=== PATIENT | female | born 1950 | race Caucasian/White ===

== ENCOUNTER → 2016-10-14 | Outpatient (CLI) | payer BC ==
[~2016-10-14] MED LIST: ACET325T96 PO; CALC500C70 PO; FLUO40CA8 PO; LACT1CAP6 PO; LORA10CA2 PO; MOME100A INH; Melatonin PO; OXYC-57 PO; SIMV40TA2 PO; WARF2TAB PO
[2016-10-14 12:11] LABS: PROTHROMBIN TIME (PATIENT) 22.2 SECONDS (9.0-12.0)
== END | disposition home or self-care (01) ==
LOC: C.LABSPEC 12:58
PROVIDERS: ATTEND Physical Medicine & Rehabilitation Sports Medicine
DX: Z96.641 Presence of right artificial hip joint (principal)

== ENCOUNTER → 2016-10-24 | Outpatient (CLI) | payer BC ==
[2016-10-24 12:15] LABS: PROTHROMBIN TIME (PATIENT) 22.2 SECONDS (9.0-12.0)
--- NOTE | 2016-11-03 06:18 | CODING QUERY NO DIAGNOSIS ---
Valid Physician Order Needed A valid physician order must be submitted in order to properly bill for the service(s) provided, including date of service(s), valid diagnosis, and physician signature. If these tests are done on a recurring basis the original physican order must be submitted in order to code and bill for the service(s) provided. Please fax us the original, signed physician order so that we may expedite billing to [phone] DOS 10/24/16 * PT/INR ORDERED BY DR. PANDYA Thank you Christiana [facility] [employer]
== END | disposition home or self-care (01) ==
LOC: C.LABSPEC 11:43
PROVIDERS: ATTEND Physical Medicine & Rehabilitation Sports Medicine
DX: Z51.81 Encounter for therapeutic drug level monitoring (principal); Z79.01 Long term (current) use of anticoagulants

== ENCOUNTER → 2016-11-20 | Outpatient (CLI) | payer BC | END | disposition home or self-care (01) | LOC: C.RDSM 13:55 | PROVIDERS: ATTEND Physical Medicine & Rehabilitation Sports Medicine | DX: T84.84XA Pain due to internal orthopedic prosthetic devices, implants and grafts, initial encounter (principal); Z96.649 Presence of unspecified artificial hip joint; Y79.2 Prosthetic and other implants, materials and accessory orthopedic devices associated with adverse incidents ==

== ENCOUNTER → 2017-03-19 | Outpatient (CLI) | payer BC | LOC: C.RDSM 14:45 | PROVIDERS: ATTEND Physical Medicine & Rehabilitation Sports Medicine | DX: Z96.649 Presence of unspecified artificial hip joint (principal) ==